=== PATIENT | female | born 1985 | race Caucasian/White ===

== ENCOUNTER → 2021-06-28 10:49 | Outpatient (CLI) | payer BC, SELFPAY ==
--- NOTE | ~2021-06-28 | MR_ITS ---
EXAMINATION: MR brain/brain stem wo/w con DATE: 06/28/2021 11:42 INDICATION: Chronic migraine without aura, not intractable. TECHNIQUE: Magnetic resonance imaging (MRI) of the brain and brainstem was performed without and with 18 mL MultiHance intravenous contrast. Sequences included sagittal and axial T1-weighted FSE, axial diffusion-weighted FS EPI, axial T2*-weighted GRE, axial T2-weighted FLAIR Propeller, and axial T2-we ighted Propeller. Postcontrast sequences included axial and coronal T1-weighted FSE. Apparent diffusi on coefficient (ADC) maps were created. COMPARISON: None. FINDINGS: There is a small focus of increased T2-weighted signal intensity in the right frontal lobe deep white matter, which is normal as an isolated finding. There is no intracranial hemorrhage, acute infarction, or abnormal intracranial mass lesion. The ventricles are normal in size. The mastoid air cells are normal. The paranasal sinuses are clear. The orbits are normal. IMPRESSION: 1. Normal brain. Reviewed, dictated and finalized at location A. IMPRESSION: 1. Normal brain.
[2021-06-28 11:19] LABS: Estimated Glomerular Filt Rate 57
== END ==
PROVIDERS: PCP Family Medicine; Visit Provider Physician Assistant Medical
DX: G43.709 Chronic migraine without aura, not intractable, without status migrainosus (principal)
CPT/HCPCS: 70553; A9577

== ENCOUNTER → 2023-05-09 08:00 | Outpatient (CLI) | payer OTHER, SELFPAY ==
--- NOTE | ~2023-05-09 | US_ITS ---
Pelvic ultrasound. Clinical History: Pelvic pain Technique: Realtime transabdominal and transvaginal scanning of the pelvis was performed. Color flow Doppler and Doppler spectral analysis were performed. Findings: The uterus is anteverted. The endometrial stripe has a thickness of 14 mm. Right-sided fib roid measures 3.5 cm in maximum diameter. The right ovary measures 3.1 x 1.6 x 1.6 cm. No significant right ovarian or adnexal mass is seen. The left ovary measures 2.6 x 2.2 x 2.4 cm. No significant left ovarian or adnexal mass is seen. Vascular flow present in both ovaries on Doppler spectral analysis. There is no evidence of free fluid in the cul de sac. Impression: 3.5 cm right-sided uterine fibroid. No other significant findings. Reviewed, dictated and finalized at [facility]. Impression: 3.5 cm right-sided uterine fibroid. No other significant findings.
== END ==
PROVIDERS: PCP Nurse Practitioner Family; Visit Provider Nurse Practitioner Family
DX: R10.31 Right lower quadrant pain (principal); D25.9 Leiomyoma of uterus, unspecified
CPT/HCPCS: 76830; 76856

== ENCOUNTER 2025-03-28 11:20 | Outpatient (CLI) | payer OTHER, SELFPAY ==
--- NOTE | ~2025-03-28 | MM_ITS ---
PROCEDURE: MM diagnostic isadora BI w rina and US breast BI limited INDICATION: 40-year old female; palpable left breast mass with tenderness since 2 months. COMPARISON: Baseline TECHNIQUE: Digital breast tomosynthesis ML and spot compression CC and MLO views of both breasts were obtained with computer-aided detection to assist in interpretation of the study. Limited bilateral b reast ultrasound was completed. MAMMOGRAM FINDINGS: The breasts are heterogeneously dense, which may obscure small masses. A spiculated mass persists in the superior lateral left breast which correlates to the area of palpa ble lump identified by the patient. There is associated left nipple retraction and skin thickening pr edominantly involving the inferior medial left breast. 2 adjacent asymmetries in the lateral right breast persists as a circumscribed masses on additional i maging. Bilateral breast ultrasound was performed for further evaluation. BILATERAL BREAST ULTRASOUND FINDINGS: Right breast: Targeted evaluation of the lateral right breast revealed multiple simple cysts that correlates to the mammographic finding. The largest cysts measure 1.5 x 0.8 x 0.7 cm at 9:00, 3 cm from the nipple and at 9:00, 2 cm from the nipple measuring 0.8 x 0.9 x 0.7 cm. Left breast: Targeted evaluation of the superior lateral left breast revealed a 6.92 x 5.2 cm heterogeneous hypoec hoic mass with echogenic halo and internal vascularity occupying 1:00 to 3:00 location, 3 cm from the nipple, which correlates to the mammographic and palpable finding. IMPRESSION: 1. Highly suspicious left breast mass at 1:00 to 3:00 location that correlates to the palpable and m ammography finding. Recommend biopsy under ultrasound guidance. 2. Benign right breast simple cysts. Further investigation necessary. RECOMMENDATIONS: ULTRASOUND-GUIDED CORE NEEDLE BIOPSY OF LEFT BREAST MASS 1:00 TO 3:00 LOCATION. BI-RADS 5, HIGHLY SUSPICIOUS FOR MALIGNANCY Reviewed, dictated and finalized at location B. IMPRESSION: 1. Highly suspicious left breast mass at 1:00 to 3:00 location that correlates to the palpable and mammography finding. Recommend biopsy under ultrasound frank dance. 2. Benign right breast simple cysts. Further investigation necessary. RECOMMENDATIONS: ULTRASOUND-GUIDED CORE NEEDLE BIOPSY OF LEFT BREAST MASS 1:00 TO 3:00 LOCATION. BI-RADS 5, HIGHLY SUSPICIOUS FOR MALIGNANCY
--- NOTE | ~2025-03-28 | US_ITS ---
PROCEDURE: MM diagnostic isadora BI w rina and US breast BI limited INDICATION: 40-year old female; palpable left breast mass with tenderness since 2 months. COMPARISON: Baseline TECHNIQUE: Digital breast tomosynthesis ML and spot compression CC and MLO views of both breasts were obtained with computer-aided detection to assist in interpretation of the study. Limited bilateral b reast ultrasound was completed. MAMMOGRAM FINDINGS: The breasts are heterogeneously dense, which may obscure small masses. A spiculated mass persists in the superior lateral left breast which correlates to the area of palpa ble lump identified by the patient. There is associated left nipple retraction and skin thickening pr edominantly involving the inferior medial left breast. 2 adjacent asymmetries in the lateral right breast persists as circumscribed masses on additional crystal ging. Bilateral breast ultrasound was performed for further evaluation. BILATERAL BREAST ULTRASOUND FINDINGS: Right breast: Targeted evaluation of the lateral right breast revealed multiple simple cysts that correlates to the mammographic finding. The largest cysts measure 1.5 x 0.8 x 0.7 cm at 9:00, 3 cm from the nipple and at 9:00, 2 cm from the nipple measuring 0.8 x 0.9 x 0.7 cm. Left breast: Targeted evaluation of the superior lateral left breast revealed a 6.92 x 5.2 cm heterogeneous hypoec hoic mass with echogenic halo and internal vascularity occupying 1:00 to 3:00 location, 3 cm from the nipple, which correlates to the mammographic and palpable finding. IMPRESSION: 1. Highly suspicious left breast mass at 1:00 to 3:00 location that correlates to the palpable and m ammography finding. Recommend biopsy under ultrasound guidance. 2. Benign right breast simple cysts. Further investigation not necessary. RECOMMENDATIONS: ULTRASOUND-GUIDED CORE NEEDLE BIOPSY OF LEFT BREAST MASS AT 1:00 TO 3:00 LOCATION. BI-RADS 5, HIGHLY SUSPICIOUS FOR MALIGNANCY Reviewed, dictated and finalized at location B. IMPRESSION: 1. Highly suspicious left breast mass at 1:00 to 3:00 location that correlates to the palpable and mammography finding. Recommend biopsy under ultrasound frank dance. 2. Benign right breast simple cysts. Further investigation not necessary. RECOMMENDATIONS: ULTRASOUND-GUIDED CORE NEEDLE BIOPSY OF LEFT BREAST MASS AT 1:00 TO 3:00 LOCATI ON. BI-RADS 5, HIGHLY SUSPICIOUS FOR MALIGNANCY
--- OUTSIDE RECORDS SUMMARY | 2025-03-28 11:24 | XMS_ITS | Clinical Summary ---
Author Organization [facility] Address [address] [place] [phone] Phone Care Team Providers Care Agricultural And Forestry Supervisor Name Role Phone Not Found, Stl Primary Care Provider Unavailabl e Allergies No known active allergies Medications cetirizine HCl (ZYRTEC ORAL) Take by mouth. A ctive erenumab-aooe (Aimovig Autoinjector) 140 mg/mL Auto-Injector Inject 1 mL (140 mg) by subcutaneous injection every 30 days. 1 mL 2 Active albuterol sulfate 90 mcg/Actuation inhaler Inhale 2 puffs by mouth every 4 (four) hours as needed for wheezing or shortness of breath. 8.5 Gram 02/21/2022 4:24 PM CDT 2 Active predniSONE (DELTASONE) 20 mg tablet Take 2 tablets (40 mg) by mouth daily for 5 days 10 Tablet 02/21/2022 4:24 PM CDT 2 Active amoxicillin-cla vulanate (AUGMENTIN) 875-125 mg tablet Take 1 tablet by mouth 2 (two) times a day for 10 days 20 Tablet 09/11/2022 4:30 PM BUFFER NICKEL 3 Active azithromycin (ZITHROMAX) 250 mg tablet Take two tablets (500 mg) by mouth today day 1, then take one tablet (250 mg) for 4 days (days 2-5) 6 Tablet 04/29/2024 6:16 PM CDT 4 Active tiZANidine (ZANAFLEX) 2 mg Tablet Take one tablet (2 mg) orally three times a day As Needed for muscle spasticity 30 Tablet 04/29/2024 6:16 PM CDT 4 Active traZODone (DESYREL) 50 mg tablet Take 1 Tablet (50 mg) by mouth daily at bedtime. 90 Tablet 3 03/12/2025 5:54 PM CDT Active Active Problems Problem Noted Date Diagnosed Date Migraines 03/09/2021 Resolved Problems Problem Noted Date Diagnosed Date Resolved Date Routine follow-up 07/04/2017 03/09/2021 Supervision of normal 01/31/2017 07/04/2017 Encounter for supervision of normal in first trimester 09/30/2016 07/04/2017 10/06/2014 07/03/2015 Encounters Date Type Department Care Team Description 03/23/2025 External Device Data [facility] ABSTRACTION Provider, Abstract 03/22/2025 External Device Data [facility] ABSTRACTION Provider, Abstract 03/01/2025 External Device Data [facility] ABSTRACTION Provider, Abstract 02/22/2025 External Device Data [facility] ABSTRACTION Provider, Abstract 01/27/2025 External Device Data [facility] ABSTRACTION Provider, Abstract 01/25/2025 External Device Data [facility] ABSTRACTION Provider, Abstract from Last 3 Months Immunizations Immunization Administration Dates Next Due (ADACEL/BOOSTRIX)(10 YR UP) TDAP VACCINE, 0.5ML, IM 02/28/2017 Family History Medical History Relation Name Comments Healthy Father Diabetes Maternal Grandmother Healthy Mother Relation Name Status Comments Brother Alive Father Alive Maternal Grandfather Alive Maternal Grandmother Alive Mother Alive Paternal Grandfather Alive Paternal Grandmother (Age 74) pn eumonia Sister Alive Son Alive Social History Tobacco Use Types Packs/Day Years Used Date Smoking Tobacco: Never Smokeless Tobacco: Never Alcohol Use Standard Drinks/Week Comments No 0 (1 standard drink = 0.6 oz pur e alcohol) Comments No Sex and Gender Information Value Date Recorded Sex Assigned at Not on file Legal Sex Female 2:27 PM BUFFER NICKEL Gender Identity Not on file Sexual Orientation Not on file 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 Not on file Not on file Last Filed Vital Signs Vital Sign Reading Time Taken Comments Blood Pressure 105/61 03/09/2021 10:04 AM CDT Pulse 52 07/04/2017 9:58 AM CDT Temperature 36.9 C (98.4 F) 05/03/2017 1:30 PM CDT Respiratory Rate 16 05/03/2017 1:30 PM CDT Oxygen Saturation 99% 07/03/2015 11:41 AM CDT Inhaled Oxygen Concentration - - Weight 92.5 kg (204 lb) 03/09/2021 10:04 AM CDT Height 177.8 cm (5' 10) 03/09/2021 10:04 AM CDT Body Mass Index 29.27 03/09/2021 10:04 AM CDT Plan of Treatment Health Maintenance Due Date Last Done Comments HPV VACCINES (1 - 3-dose series) 2001 HEPATITIS B VACCINES (1 of 3 - 19+ 3-dose series) 2005 PAP SMEAR 08/13/2022 08/13/2019, 10/27/2014 CERVICAL CANCER SCREENING 08/13/2024 HPV/Cotest (21-29) 08/13/2024 08/13/2019, 10/27/2014 HPV/Cotest (30-65) 08/13/2024 08/13/2019, 10/27/2014 INFLUENZA VACCINE (#1) 2025 DTAP/TDAP/TD VACCINES (2 - Td or Tdap) 02/28/2027 Procedures Procedure Name Priority Date/Time Associated Diagnosis Comments CERV/VAG CYTO SCREEN PAP W/HPV Routine 08/13/2019 11:00 AM BUFFER NICKEL Well woman exam with routine gynecological exam from Last 3 Months or Most Recently Relevant to Health Maintenance Results * CERV/VAG CYTO SCREEN PAP W/HPV (08/13/2019 11:00 AM BUFFER NICKEL) CLINICAL INFORMATION Information not provided 08/17/2019 9:03 AM BUFFER NICKEL [facility] LAST MENSTRUAL PERIOD Information not provided 08/17/2019 9:03 AM BUFFER NICKEL [facility] PREV PAP: Information not provided 08/17/2019 9:03 AM BUFFER NICKEL [facility] PREV BX: Information not provided 08/17/2019 9:03 AM BUFFER NICKEL [facility] SOURCE Endocervix 08/17/2019 9:03 AM BUFFER NICKEL [facility] ADEQUACY: SEE COMMENT 08/17/2019 9:03 AM BUFFER NICKEL [facility] Comment: Satisfactory for evaluation. Endocervical/transformation zone component present. Age and/or menstrual status not provided PAP INTERP Negative for intraepithelial lesion or malignancy. 08/17/2019 9:03 AM [facility]FFER NICKEL [facility] COMMENT This Pap test has been evaluated with computer assisted technology. 08/17/2019 9:03 AM [facility] BUSINESS CONTINUITY CONSULTANT: SEE COMMENT 2018 9:03 AM BUFFER NICKEL [facility] Comment: BES, CT(ASCP) CT screening location: [place] [address] [address] [place] [address] REVIEW BUSINESS CONTINUITY CONSULTANT: SEE COMMENT 08/17/2019 9:03 AM BUFFER NICKEL [facility] Comment: AMW, CT(ASCP) CT screening location: [place] [address] [address] [place] [address] EXPLANATORY NOTE SEE COMMENT 019 9:03 AM BUFFER NICKEL [facility] Comment: EXPLANATORY NOTE: The Pap is a screening test for cervical cancer. It is not a diagnostic test and is subject to false negative and false positive results. It is most reliable when a satisfactory sample, regularly obtained, is submitted with relevant clinical findings and history, and when the Pap result is evaluated along with historic and current clinical information. HPV E6/E7 Not Detected Not Detected 08/17/2019 9:03 AM [facility] Comment: This test was performed using the APTIMA HPV Assay ([employer] This assay detects E6/E7 viral messenger RNA (mRNA) from 14 high-risk HPV types (16,18,31,33,35,39,45,51,52,56,58,59,66,68). The analytical performance characteristics of this assay have been determined by [employer]. The modifications have not been cleared or approved by the FDA. This assay has been validated pursuant to the CLIA regulations and is used for clinical purposes. Genital SWAB OF ENDOCERVIX / Unknown Collection / Unknown 08/13/2019 11:00 AM BUFFER NICKEL 08/13/2019 1:01 PM BUFFER NICKEL Narrative [facility] - 08/17/2019 9:03 AM BUFFER NICKEL Performing Organization Information: Site ID: [place] [facility] Address: [address] [address] Director: Meet Mason D.O., MPH Site ID: [place] [facility] Address: [address] [id number] Director: Tomy Whitehead Elza Maykel CNM PATHOLOGY/CYTOLOGY ORDERABL ES Final Result [facility] [phone] from Last 3 Months or Most Recently Relevant to Health Maintenance Insurance BCBS BLUE ACCESS/TRUE BLUE PPO RX [employer] PLANS (INTERNAL) [facility] Internal Plans RX [facility] [employer] Advance Directives For more information, please contact: [phone] * Full Code (Latest Code Status on File) Date Activated Date Inactivated Comments 05/02/2017 7:45 PM 05/04/2017 9:30 AM * Full Code Date Activated Date Inactivated Comments 05/02/2017 10:08 AM 05/02/2017 7:45 PM * Full Code Date Activated Date Inactivated Comments 05/11/2015 7:33 PM 05/12/2015 10:40 AM * Full Code Date Activated Date Inactivated Comments 05/11/2015 6:19 PM 05/11/2015 7:33 PM Care Teams Agricultural And Forestry Supervisor Relationship Specialty Start Date End Date Not Found, Stl NO ADDRESS ON FILE PCP - General 11/28/16
--- OUTSIDE RECORDS SUMMARY | 2025-03-28 11:24 | XMS_ITS | Clinical Summary ---
Author Organization [facility] [address] Address [address] [place] [phone] Care Team Providers Care Social Services Manager Name Role Phone No, Physician Primary Care Provider [phone] Allergies No known active allergies Medications traZODone (DESYREL) 50 mg tablet 2 Active albuterol HFA (ProAir HFA) 90 mcg/actuation inhalerIndicati ons:Wheezing Inhale 2 puffs every 4 (four) hours as needed for wheezing or shortness of breath 8.5 g 2 Active Additional Information Patient not taking.Reported on 08/21/2022 fluconazole (DIFLUCAN) 150 mg tablet 2 Active Active Problems Problem Noted Date Diagnosed Date Skin neoplasm 08/25/2015 Keratosis pilaris 08/25/2015 Benign neoplasm of soft tissues 08/25/2015 Medical History Medical History Date Comments Personal history of diseases of skin or subcutaneous tissue History of eczema - (Added b y TW Conv) Family History Medical History Relation Name Comments Diabetes Mother Family history of diabetes mellitus - (Added by TW Conv) Diabetes Other Family history of diabetes mellitus - (Added by TW Conv) Relation Name Status Comments Mother Other Social History Tobacco Use Types Packs/Day Years Used Date Smoking Tobacco: Never Tobacco Cessation:Counseling Given: Not Answered Personal Safety Answer Date Recorded Getting School Help Needed Not on file 10/11 Comments Unknown Sex and Gender Information Value Date Recorded Sex Assigned at Not on file Legal Sex Female 5:56 AM NUCLEAR CONTROL ROOM OPERATOR Gender Identity Not on file Sexual Orientation Not on file Obstetrics History Last Filed Vital Signs Vital Sign Reading Time Taken Comments Blood Pressure 128/79 09/11/2022 3:48 PM NUCLEAR CONTROL ROOM OPERATOR Pulse 70 09/11/2022 3:48 PM NUCLEAR CONTROL ROOM OPERATOR Temperature 36.8 C (98.2 F) 09/11/2022 3:48 PM NUCLEAR CONTROL ROOM OPERATOR Respiratory Rate 16 09/11/2022 3:48 PM NUCLEAR CONTROL ROOM OPERATOR Oxygen Saturation 99% 09/11/2022 3:48 PM NUCLEAR CONTROL ROOM OPERATOR Inhaled Oxygen Concentration - - Weight 93.9 kg (207 lb) 09/11/2022 3:48 PM NUCLEAR CONTROL ROOM OPERATOR Height 177.8 cm (5' 10) 09/11/2022 3:48 PM NUCLEAR CONTROL ROOM OPERATOR Body Mass Index 29.7 09/11/2022 3:48 PM NUCLEAR CONTROL ROOM OPERATOR Plan of Treatment Health Maintenance Due Date Last Done Comments Cervical Cancer Screening 1986 Depression Screening 1986 Hepatitis C Screening 1986 Varicella Vaccines (1 of 2 - 13+ 2-dose series) 1999 Hepatitis B Screening 2004 Regular Well Visit/Exam 18-64 2004 Covid-19 Vaccine (3 - 2023-2 5 season) 2024 04/26/2021, 04/05/2021 Influenza Vaccine (#1) 2025 DTaP/Tdap/Td Vaccine (2 - Td or Tdap) 02/28/2027 02/28/2017 HPV Vaccines Aged Out No longer eligi ble based on patient's age to complete this topic Pneumococcal vaccine <65 Aged Out No longer eligible based on patient's age to complete this topic Insurance A[facility]NA [facility] [employer] H[place]/POS AETNA [place] HMO/POS Care Teams Social Services Manager Relationship Specialty Start Date End Date No, Physician PCP - General 02/21/22
--- OUTSIDE RECORDS SUMMARY | 2025-03-28 11:24 | XMS_ITS | Clinical Summary ---
Author Organization [facility] Address [address] [place] [phone] Care Team Providers Care Machine Castings Plasterer Name Role Phone Unavailable Primary Care Provider Unavailabl e Allergies No known active allergies Medications No known medications Family History Medical History Relation Comments Cancer Maternal Grandmother Diabetes Mother Cancer Paternal Grandmother Relation Status Comments Maternal Grandmother Mother Paternal Grandmother parkinsons Social History Tobacco Use Types Packs/Day Years Used Date Smoking Tobacco: Never Smokeless Tobacco: Never Tobacco Cessation:Counseling Given: Not Answered Alcohol Use Standard Drinks/Week Comments Not Asked 0 (1 standard drink = 0.6 oz pur e alcohol) monthly Comments Unknown Sex and Gender Information Value Date Recorded Sex Assigned at Not on file Legal Sex Female 11:22 AM CDT Gender Identity Not on file Sexual Orientation Not on file Last Filed Vital Signs Vital Sign Reading Time Taken Comments Blood Pressure - - Pulse - - Temperature - - Respiratory Rate - - Oxygen Saturation - - Inhaled Oxygen Concentration - - Weight 95.3 kg (210 lb) 06/28/2024 12:51 PM CDT Height 177.8 cm (5' 10) 06/28/2024 12:51 PM CDT Body Mass Index 30.13 06/28/2024 12:51 PM CDT Plan of Treatment Health Maintenance Due Date Last Done Comments Cervical Cancer Screening Pa p Smear (Age 30 to 64) Every 3 Years 1986 Annual Physical 1989 Hepatitis C 2004 DTaP, Tdap and Td Vaccines ( 1 - Tdap) 2005 Hepatitis B Vaccines (1 of 3 - 19+ 3-dose series) 2005 Cervical Cancer Screening Pa p with HPV Testing (Age 30 to 64) Every 5 Years 2016 Cervical Cancer Screening with HPV 2016 COVID-19 Vaccine (2023-2 5 season) 2024 HPV Vaccines Aged Out No longer eligi ble based on patient's age to complete this topic Meningococcal B Vaccine Aged Out No l onger eligible based on patient's age to complete this topic Meningococcal Vaccine Aged Out No gloria patel eligible based on patient's age to complete this topic Pneumococcal Vaccine: Pediat rics (0 to 5 Years) and At-Risk Patients (6 to 49 Years) Aged Out No longer eligible b ased on patient's age to complete this topic RSV Immunizations Under 20 Months Aged Out No longer eligible based on patient's age to complete this topic Insurance AETNA [facility]
--- OUTSIDE RECORDS SUMMARY | 2025-03-28 11:24 | XMS_ITS | Clinical Summary ---
Author Organization [facility] Address [address] [place] [address] Care Team Providers Care Employee Development Manager Name Role Phone Unavailable Primary Care Provider Unavailabl e Source Comments [facility],non-owned Affiliates and Associated Physician Practices is amultiple site organization consisting of ambulatory clinics and hospital sitesin [place], [place], [place] and [place]. This disclosure is being madepursuant to the Care Everywhere program and may not contain all information available regarding this patient. Last updated 18.[facility] [employer] Allergies No known active allergies Medications * Be aware that medications may not be up to date on this document. Alwaysverify current medications with the patient. Cetirizine HCl (ZYRTEC PO) Active Probiotic Product (PROBIOTIC ADVANCED PO) Active Multiple Vitamin (MULTI-VITAMIN DAILY PO) Active Social History Tobacco Use Types Packs/Day Years Used Date Smoking Tobacco: Never Smokeless Tobacco: Never Comments Unknown Sex and Gender Information Value Date Recorded Sex Assigned at Not on file Legal Sex Female 3:54 PM CDT Gender Identity Not on file Sexual Orientation Not on file Last Filed Vital Signs Vital Sign Reading Time Taken Comments Blood Pressure 124/76 12/13/2020 5:44 PM CDT Pulse 69 12/13/2020 5:44 PM CDT Temperature 36.8 C (98.2 F) 12/13/2020 5:44 PM CDT Respiratory Rate 16 12/13/2020 5:44 PM CDT Oxygen Saturation 98% 12/13/2020 5:44 PM CDT Inhaled Oxygen Concentration - - Weight 90.7 kg (200 lb) 12/13/2020 5:44 PM CDT Height 177.8 cm (5' 10) 12/13/2020 5:44 PM CDT Body Mass Index 28.7 12/13/2020 5:44 PM CDT Plan of Treatment Health Maintenance Due Date Last Done Comments HIV SCREENING 2001 HEPATITIS C SCREENING 03/02/2004 DTAP/TDAP/TD VACCINES (1 - Tdap) 2005 HEPATITIS B VACCINE (1 of 3 - 19+ 3-dose series) 2005 HPV VACCINE (1 - 3-dose SCDM series) 2013 COVID-19 VACCINE ( - 2023-2 5 season) 2024 DEPRESSION SCREENING 09/08/2024 INFLUENZA VACCINE (#1) 2025 ZOSTER VACCINE (1 of 2) 2036 HIB VACCINE Aged Out No longer eligi ble based on patient's age to complete this topic MENINGOCOCCAL (Group B) VACC INE SHARED DECISION-MAKING Aged Out No longer eligibl e based on patient's age to complete this topic MENINGOCOCCAL GROUPS A/C/Y/W VACCINE Aged Out No longer eligible b ased on patient's age to complete this topic PNEUMOCOCCAL VACCINE Aged Out No long er eligible based on patient's age to complete this topic Insurance TRUE AETNA
--- OUTSIDE RECORDS SUMMARY | 2025-03-28 11:24 | XMS_ITS | Clinical Summary ---
Author Organization [facility] Address [address] [place] [phone] Phone Care Team Providers Care Manager Contract Name Role Phone Provider, None Primary Care Provider Unavailabl e Allergies No known active allergies Medications traZODone (DESYREL) 50 MG Tablet Take 50 mg by mouth. 2 Active predniSONE (DELTASONE) 20 MG Tablet Take 40 mg by mouth. 2 Active Erenumab-aooe (Aimovig) 140 MG/ML Solution Auto-injector 140 mg by Subcutaneous route. 2 Active Active Problems No known active problems Immunizations Immunization Administration Dates Next Due TDAP Vaccine 02/28/2017 Social History Tobacco Use Types Packs/Day Years Used Date Smoking Tobacco: Never Smokeless Tobacco: Never Tobacco Cessation:Counseling Given: Not Answered Alcohol Use Standard Drinks/Week Comments Yes 2 (1 standard drink = 0.6 oz pur e alcohol) Sexually Active Control Partners Comments Yes Male Comments No Sex and Gender Information Value Date Recorded Sex Assigned at Not on file Legal Sex Female 3:06 PM CDT Gender Identity Not on file Sexual Orientation Not on file Last Filed Vital Signs Vital Sign Reading Time Taken Comments Blood Pressure 112/58 04/27/2023 3:24 PM CDT Pulse 68 04/27/2023 3:24 PM CDT Temperature 36.4 C (97.5 F) 04/27/2023 3:24 PM CDT Respiratory Rate 14 04/27/2023 3:24 PM CDT Oxygen Saturation 96% 04/27/2023 3:24 PM CDT Inhaled Oxygen Concentration - - Weight - - Height - - Body Mass Index - - Plan of Treatment Health Maintenance Due Date Last Done Comments Hepatitis C Virus (HCV) Screening 1986 Human Papillomavirus (HPV) Immunization (1 - 3-dose series) 2001 Hepatitis B Immunization (1 of 3 - 19+ 3-dose series) 2005 Pap Smear 2007 Cervical Cancer Screening (CCS) 2016 HPV/Cotest 2016 SARS-COV-2 Immunization (3 - 2023- season) 2024 04/26/2021, 04/05/2021 Influenza Immunization (#1) 2025 Td Immunization Every 10 Yea rs (Adults With 1 Tdap) 02/28/2027 02/28/2017 Respiratory Syncytial Virus (RSV) Immunization (Adult) (1 - 1-dose 75+ series) 2061 DTaP/Tdap/Td Immunization Discontinued 02/28/2017 Meningococcal Immunization (ACWY) Aged Out No longer eligible based on patient's age to complete this topic Pneumococcal Immunization Combined Aged Out No longer eligible based on patient's age to complete this topic Rotavirus Immunization Aged Out No lo nger eligible based on patient's age to complete this topic Insurance [employer] Care Teams Manager Contract Relationship Specialty Start Date End Date Provider, None [place] PCP - General 04/27/23
--- OUTSIDE RECORDS SUMMARY | 2025-03-28 11:24 | XMS_ITS | Referral Summary ---
Author Organization [facility] [address] Address [address] [place] [phone] Care Team Providers Care Fur Operator Name Role Phone No, Physician Primary Care Provider [phone] Allergies No known active allergies Medications traZODone [...] 08/25/2015 Benign neoplasm of soft tissues 08/25/2015 Social History Tobacco Use Types Packs/Day Years Used Date Smoking Tobacco: Never Tobacco Cessation:Counseling Given: Not Answered Personal Safety Answer Date Recorded Getting School Help Needed Not on file 10/11 Comments Unknown Sex and Gender Information Value Date Recorded Sex Assigned at Not on file Legal Sex Female 5:56 AM BUSINESS MANAGEMENT SPECIALIST Gender Identity Not on file Sexual Orientation Not on file Last Filed Vital Signs Vital Sign Reading Time Taken Comments Blood Pressure 128/79 09/11/2022 3:48 PM BUSINESS MANAGEMENT SPECIALIST Pulse 70 09/11/2022 3:48 PM BUSINESS MANAGEMENT SPECIALIST Temperature 36.8 C (98.2 F) 09/11/2022 3:48 PM BUSINESS MANAGEMENT SPECIALIST Respiratory Rate 16 09/11/2022 3:48 PM BUSINESS MANAGEMENT SPECIALIST Oxygen Saturation 99% 09/11/2022 3:48 PM BUSINESS MANAGEMENT SPECIALIST Inhaled Oxygen Concentration - - Weight 93.9 kg (207 lb) 09/11/2022 3:48 PM BUSINESS MANAGEMENT SPECIALIST Height 177.8 cm (5' 10) 09/11/2022 3:48 PM BUSINESS MANAGEMENT SPECIALIST Body Mass Index 29.7 09/11/2022 3:48 PM BUSINESS MANAGEMENT SPECIALIST Plan of Treatment Not on file Insurance AETNA COVENTRY HMO/POS AETNA COVENTRY HMO/POS Care Teams Fur Operator Relationship Specialty Start Date End Date No, Physician PCP - General 02/21/22
--- OUTSIDE RECORDS SUMMARY | 2025-03-28 11:24 | XMS_ITS | Data Portability ---
Author Organization [facility], [id number] Address [address] [place] [address] Assessment No assessment recorded. Plan of Treatment Reminders Order Date Submit Date Provider Last Modified By Organization Details Last Modified Time Details Appointments ANNUAL- EST 15 2025 12:45P M ANGELICA CARRILLO Not available Not available Not available Lab CBC w/ auto diff 2024 025 [facility], [address], [place], [address], 03/16/2025 08:44:57 CMP, serum or plasma 2024 025 [facility], [address], [place], [address], 03/16/2025 08:44:57 TSH, serum or plasma 2024 025 [facility], [address], [place], [address], 03/16/2025 08:44:57 T4, free, serum 2024 025 [facility], [address], [place], [address], 03/16/2025 08:44:57 Referral None recorde d. Procedures None recorde d. Surgeries None recorde d. Imaging MAMMO, diagnos tic, digital , bilater al - brian please* L breast firm/ma ss, nontend er. 2024 025 [facility], [address], [place], [address], 03/16/2025 08:42:50 US, breast, unilate ral, complet e 2024 025 [facility], [address], [place], [address], 03/16/2025 08:42:50 Medication Orders None recorde d. Patient TargetsNo targets recorded. Patient InstructionsNo instructions recorded. Reason for Referral None Reported. Problems Name Problem SNOMED Code Status Onset Date Resolution Date Notes Provider Name and Address Organization Details Recorded Time Migraine 57034150 Active 025 ANGELICA CARRILLO [address], [place], [place], [address], [facility] 5 14:09:13 Breast lump 21734751 Active 025 ANGELICA CARRILLO [address] [facility] [address], [place], [place], [address], [facility] 5 14:22:36 Labial cyst 057857506 Active 025 ANGELICA CARRILLO [address] [facility] [address], [place], [place], [address], [facility] 5 14:25:34 Menorrhagia 747865157 Active 025 ANGELICA CARRILLO [address], [place], [place], [address], [facility] 5 14:31:57 Problem Notes None recorded. Procedures Surgical History Date Name Laterality Status Provider Name and Address Organization Details Recorded Time 11/12/2022 Date of Last Pap Smear completed [facility] 03/02/2025 14:46:36 Imaging Results None recorded. Procedure Notes None recorded. Medical Equipment None Reported. Allergies No known drug allergies Medications Name Sig Start Date Stop Date Status Note LastModified by Organization Details LastModified Time trazodone 50 mg tablet Take 1 tablet every day by oral route. active Not Available Not Available No t Available Zyrtec 10 mg tablet Take 1 tablet every day by oral route. active Not Available Not Available No t Available multivitamin active Not Available Not Available Not Available Qulipta 60 mg tablet Take 1 tablet every day by oral route. active Not Available Not Available No t Available Vitals Date Recorded Body height Body mass index (BMI) Body weight Systolic And Diastolic Provider Name and Address Organization Details Last Updated DateTime 03/09/2025 172.72 cm 31 kg/m2 76703.84 g 114/62 mm[Hg] [facility] 03/09/2025 13:48:02 Social History Question Answer Notes LastModified by [employer] Details LastModified Time Tobacco Smoking Status Never Smoker Not Available [facility] 01/06/2025 14:52:26 Do You Have An Advance Directive? No Information not available 03/09/2025 If You Are , What Was Your Level Of Alcohol Consumption Prior To ? None Information not available 03/09/2025 How Many Years Have You Consumed Alcohol? 10 Information not available 03/09/2025 What Is Your Level Of Caffeine Consumption? Moderate Information not available 03/09/2025 What Type Of Diet Are You Following? REGULAR Information not available 03/09/2025 What Is Your Relationship Status? Other Note: Information not available 01/06/2025 Sex: Female Functional Status Question Answer Note LastModified by [employer] Details LastModified Time Do you use any illicit or recreational drugs? No Information not available 01/06/2025 What is your level of alcohol consumption? Occasional Qty: 0-2 per day; Note: Use status used: Current some day Amount used: occasional Information not available 01/06/2025 Are you currently employed? 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 Family History Relationship Description Onset Age of this Age Resolved Age Notes LastModified by Organization Details LastModified Time Maternal Grandmother Malignant neoplastic disease Cancer Breast cancer Not available 01/06/2025 13:05:07 Paternal Grandmother Malignant neoplastic disease Cancer Breast cancer Not available 01/06/2025 13:05:07 Unspecified Relation Malignant neoplastic disease Cancer Breast cancer Relati ve: 'Aunt' ; Not available 01/06/2025 13:05:07 Medical History Condition Response Cancer- Genetic screening Neurology- Headaches/Migraines Y Gynecological History Statement/Question Response History of PCOS N History of Infertility N History of Vulvar Dysplasia N History of Cervical Dysplasia N Current Control Method: Vasectomy - Partner Duration of Flow (days) 7 Age at Menarche 13 Current Control Method Partner Vas ectomy History of Recurrent Ovarian Cysts Y Age at first intercourse 18 HPV Vaccine Not Completed History of Endometriosis N Sexually Active? Y History of Dysmenorrhea N Menses Monthly N Date of Last HPV Test 11/12/2022 Date of Last Pap Smear 11/12/2022 Sexual Problems? N History of Sexually Transmitted Infectio n N Obstetrics History GPAL:G 4 P 3 0 1 3 Type Value Multiple Births 0 Full Term 3 Induced 0 Spontaneous 1 Premature 0 Living 3 Ectopics 0 Total 4 Past Encounters Encounter ID Performer Location Encounter Start Date Encounter Closed Date Diagnosis/Indication Diagnosis SNOMED-CT Code Diagnosis ICD10 Code Diagnosis Note [id number] EVELIN MENDOZA [address], MD [id number] [facility] [address] [facility] [place] [address] 03/09/2025 13:32:22 03/09/2025 14:26:08 Depression screening 860927089 Z13.31 03/09/25-sco re 2 Breast lump 58743699 N63 .25 03/09/25-sta t diagnostic mammogram and US-call today for brian appt Gynecologi danna examination abnormal [id number] 65693 Z01.411 -f/u 1 year 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 Labial cyst 405868078 N9 0.7 03/09/25-was supposed to have removed in Aug 2024 but child broke his foot so she had to cancel Menorrhagia 301364217 N9 2.0 03/09/25-hav e labs done-decli pamela pelvic US at this time Health Concerns Section Related Observation LastModified by Organization Detai ls LastModified Time None Recorded Concern Status LastModified by Organization Details LastModified Time None Recorded Advance Directives Directive N: Payers Insurance Date Sequence Insurance Name Policy Number Policy [place] Covered Member ID [place] Member ID Guarantor Name 03/09/2025 1 SURY (POS II) [id number] Michael Crowder [id number] Madelyn Crowder 02/11/2025 1 SURY Michael Lakesha [id number] Madelyn Crowder Notes Date Note Type Note Provider Name and Address Organization Details Recorded Time 03/09/2025 text/html [facility] Annual Well-Women Visit Age 30-39Reported bypatient.Current Medical History:reviewed and documented Relevant Family History:has a family history of breast cancer(paternal grandmother dx in [id number] 50s) Last Pap smear:up-to-date Thyroid screeningdue Contraceptive Method:satisfied with current method; contraceptive method: partner vasectomy Sexually Active:Yes: same partner STI Screen:declines STI testing Menstrual cycle:Frequency of Menses: monthly; Duration of Flow: 4 days; Number of Days of Heavy Flow: 4 Breast:breast lump, left 03/09/25 here for annual. c/o L breast feeling heavier, more dense for the last 6-12mo. feels like L nipple is starting to pull inward. denies nipple discharge. paternal grandmother dx with breast ca in [id number]. denies other family hx of breast ca. has monthly menses but states they've gone from being moderate flow of 7 days to heavy flow of 4 days in the last 6mo. c/o fatigue after this last period. states she was saturating a large pad at least every 2 hours. has cyst on R labia-was supposed to have removed in Aug 2024 but son broke his foot so she had to cancel. -adelita ANGELICAAnna CARRILLO [address] [facility] [address], [place], [address], [facility] 03/09/2025 14:39:24 OBGyn Episode Ob Episode Information Episode Created Date Number of Fetuses Patient Bloodtype Patient rh Status Prepregnancy Weight lbs Domestic Partner Domestic Partner Phone Father Name Honey Liquefier Status 01/22/20 25 1 CLOSED Fetus Data First Name Last Name Admitted to NICU Weight (g) Sex Living Outcome Pediatric Complications Fetus ID Race Codes Race Delivery Type M [id number] Vaginal Aric Calculation Initial Aric Date Initial Exam Date Initial Exam Provider Initial Ultrasound Date Last Menstrual Period Date Ultra Sound Weeks Gestation 0 Eighteen To Twenty Week Aric Update Ultra Sound Date Fundal Height At Umbil Quickening Date Ultra Sound Latest Weeks Gestation Final Aric Confirmed By Final Aric Confirmed Date Final Aric Date Ultra Sound Latest Days Gestation 0 0 Menstrual History Last Menstrual Date Menses Monthly On Bcp Conception Prior Menses Frequency Hcg Plus Date Menarche Onset Age Delivery Information Delivery Date Delivery Type Labor Anesthesia Weeks Gestation Incision Type Labor Labor Length Hrs Delivered By Post Complications Tubal Sterilization Discharge Date Comments 2 MoBap, fetus_1_w eight_lbs : '8# 6 oz'; Discharge Information Feeding Method Contraceptive Method Maternal HG B and HCT Levels Ob Episode Information Episode Created Date Number of Fetuses Patient Bloodtype Patient rh Status Prepregnancy Weight lbs Domestic Partner Domestic Partner Phone Father Name Honey Liquefier Status 01/22/20 1 CLOSED Fetus Data First Name Last Name Admitted to NICU Weight (g) Sex Living Outcome Pediatric Complications Fetus ID Race Codes Race Delivery Type M [id number] Vaginal Aric Calculation Initial Aric Date Initial Exam Date Initial Exam Provider Initial Ultrasound Date Last Menstrual Period Date Ultra Sound Weeks Gestation 0 Eighteen To Twenty Week Aric Update Ultra Sound Date Fundal Height At Umbil Quickening Date Ultra Sound Latest Weeks Gestation Final Aric Confirmed By Final Aric Confirmed Date Final Aric Date Ultra Sound Latest Days Gestation 0 0 Menstrual History Last Menstrual Date Menses Monthly On Bcp Conception Prior Menses Frequency Hcg Plus Date Menarche Onset Age Delivery Information Delivery Date Delivery Type Labor Anesthesia Weeks Gestation Incision Type Labor Labor Length Hrs Delivered By Post Complications Tubal Sterilization Discharge Date Comments 7 mercy, fetus_1_w eight_lbs : '8# 9oz'; Discharge Information Feeding Method Contraceptive Method Maternal HG B and HCT Levels Ob Episode Information Episode Created Date Number of Fetuses Patient Bloodtype Patient rh Status Prepregnancy Weight lbs Domestic Partner Domestic Partner Phone Father Name Honey Liquefier Status 01/22/20 25 1 CLOSED Fetus Data First Name Last Name Admitted to NICU Weight (g) Sex Living Outcome Pediatric Complications Fetus ID Race Codes Race Delivery Type M [id number] Vaginal Aric Calculation Initial Aric Date Initial Exam Date Initial Exam Provider Initial Ultrasound Date Last Menstrual Period Date Ultra Sound Weeks Gestation 0 Eighteen To Twenty Week Aric Update Ultra Sound Date Fundal Height At Umbil Quickening Date Ultra Sound Latest Weeks Gestation Final Aric Confirmed By Final Aric Confirmed Date Final Aric Date Ultra Sound Latest Days Gestation 0 0 Menstrual History Last Menstrual Date Menses Monthly On Bcp Conception Prior Menses Frequency Hcg Plus Date Menarche Onset Age Delivery Information Delivery Date Delivery Type Labor Anesthesia Weeks Gestation Incision Type Labor Labor Length Hrs Delivered By Post Complications Tubal Sterilization Discharge Date Comments 5 mercy, fetus_1_w eight_lbs : '8#'; Discharge Information Feeding Method Contraceptive Method Maternal HG B and HCT Levels
== END 2025-03-28 11:21 | disposition home or self-care (01) ==
PROVIDERS: PCP Family Medicine; Visit Provider Nurse Practitioner
DX: N63.25 Unspecified lump in the left breast, overlapping quadrants (principal); R92.8 Other abnormal and inconclusive findings on diagnostic imaging of breast
CPT/HCPCS: 76642; 77062; 77066; G0279